=== PATIENT | female | born 1945 | race Caucasian/White ===

== ENCOUNTER 2023-11-14 21:13 | Inpatient (IN) | payer OTHER, SELFPAY ==
[2023-11-14 17:19] VITALS: BMI 22.3
[2023-11-14 17:23] VITALS: BP 128/75
--- NOTE | 2023-11-14 18:02 | ED.GENMED ---
History of Present Illness
General
Chief Complaint: Fall
Source: patient
Exam Limitations: none
Time Seen by Provider: 11/14/23 17:46
Nursing documentation reviewed up to this point in time: agreed with
Travel History
Have you had any contact with someone who has COVID-19?: No
Do you have any symptoms of coronavirus? Fever > 100 degrees, chills, cough, shortness of breath, sore throat, loss of taste or smell, muscle aches, or headache?: No
History of Present Illness
History of Present Illness:
Patient is a 78-year-old female who presents via ambulance.. Patient reports she was walking on the concrete outside and fell hit the left side of her shoulder. She reports it happened so fast she does not believe she hit her head but is not
certain. She complains of left shoulder pain left knee pain. She denies any pain in the hip. She is on blood thinners. denies headache denie
40s neck pain.
Review of Systems
Review of Systems
Allergies reviewed?: Yes
All Other Systems: ROS reviewed and negative except as documented in HPI and ROS
Constitutional: Reports no symptoms; Denies fever
EENT: Reports no symptoms
Respiratory: Reports no symptoms
Cardiac: Reports no symptoms
Musculoskeletal: Reports other (left shoulder left knee pain )
Skin: Reports no symptoms
Neurological: Reports no symptoms
Psychiatric: Reports no symptoms
Phy Exam
General Physical Exam
General Presentation: mild distress
General age: appears stated age
General Skin: warm and dry
General Habitus: elderly
General Mental: alert
General Hydration: appears well hydrated
Cardiovascular Exam
Cardiovascular Exam: regular rate/rhythm, no murmur and normal peripheral pulses
Pulmonary Exam
Pulmonary Exam: lungs clear and no respiratory distress
Neurological Exam
Neurological Exam: alert and oriented x3
Sandra Coma Scale
Eye Opening: Spontaneous
Verbal Response: Oriented
Motor Response: Obeys Commands
GCS Total Score: 15
Musculoskeletal Exam
Musculoskeletal Exam: other (No obvious head injury on exam very cervical thoracic or lumbar tenderness patient tender throughout the left proximal shoulder region, limited range of motion due to pain , lle with strong pulses pain with any ROM to
left knee no deformity )
Skin Exam
Skin Exam: normal color and warm/dry
Psychiatric Exam
Psychiatric Exam: normal mood/affect
Course
Orders/Labs/Results
Orders:
Orders
11/14/23 17:27
CR Knee - Left 4 Or More View* Urgent
Comment:
Reason For Exam: fall, left knee pain
CR Shoulder, Trauma - Left Urgent
Reason For Exam: left shoulder pain after fall.
11/14/23 18:01
CT Head W/o Iv Contrast Urgent
Comment:
Reason For Exam: trauma
Morphine Sulfate 2 mg IV NOW STA
11/14/23 18:09
Complete Blood Count/With Diff Urgent
Comprehensive Metabolic Panel Urgent
11/14/23 18:23
Morphine Sulfate 4 mg IV NOW STA
11/14/23 19:07
Femur, Left 2 View [CR Femur - Left Min 2 Vw] Urgent
Comment:
Reason For Exam: trauma
Hip, Left 2-3 Views [CR Hip - LT w/wo Pel 2-3 Vw*] Urgent
Comment:
Reason For Exam: trauma
Include a pelvis x-ray?: Yes
11/14/23 20:12
Morphine Sulfate 4 mg IV NOW STA
11/14/23 20:26
Knee Immobilizer Left-Treatmen ONCE
Shoulder Immobilizer Left- Tx ONCE
11/14/23 20:41
Admit/Transfer Patient As Directed
Co-Sign Provider:
Level of Care: Inpatient admission
Assign to:: Medical/Surgical
Physician / Group: ramila hubbard
Diagnosis: acute tib plateau fracture
Reason for Hospitalization: acute tib plateau fracture
Expected length of stay greater than two midnights?: Yes
ELOS- Estimated Length of Stay in days: 3
I certify the patient meets the requirements for IP care: Yes
11/14/23 20:43
Code Status As Directed
Resuscitation Status: Full Code
Abnormal Lab Results
11/14/23
18:09
WBC 13.3 H 10^3/uL
(4.8-10.8)
RBC 4.01 L 10^6/uL
(4.20-5.40)
Hct 35.4 L %
(37.0-47.0)
MPV 10.5 H fL
(7.4-10.4)
Abs Immat Gran (auto) 0.1 H 10^3/uL
(0-0.05)
Absolute Neuts (auto) 9.0 H 10^3/uL
(1.4-6.5)
Absolute Monos (auto) 0.8 H 10^3/uL
(0.1-0.6)
Immature Gran % 0.7 H %
(0-0.5)
BUN 18 H mg/dl
(7-17)
Glucose 140 H mg/dl
(70-99)
11/14/23 18:09
11/14/23 18:09
Vital Signs
Initial and Last Documented VS:
Initial Vital Signs
Temp Pulse Resp BP Pulse Ox
97.6 F 71 18 128/75 95
11/14/23 17:23 11/14/23 17:23 11/14/23 17:23 11/14/23 17:23 11/14/23 17:23
Last Documented Vital Signs
Temp Pulse Resp BP Pulse Ox
97.6 F 84 16 133/74 93
11/14/23 17:23 11/14/23 18:12 11/14/23 18:12 11/14/23 21:00 11/14/23 21:15
MDM/Problems Addressed
Differential Diagnosis Includes:
Not limited to shoulder fracture versus contusion versus sprain, knee fracture versus sprain
MDM/Problems Addressed:
78-year-old female was walking outside describes mechanical fall landing on the left side. She complains of left shoulder plain left knee pain. She has an acute fracture of the left proximal humerus with impaction. Patient also has acute fracture
lateral tibial plateau with mild articular surface depression of left knee. Patient has required multiple doses of pain medication here in the ER. She is on blood thinners and denies hitting her head no obvious tender on exam no obvious findings
on CAT scan. I did speak with orthopedics will place in shoulder immobilizer knee immobilizer however patient requiring several doses of narcotic medication does not feel well to go home will require admission and possible SNF placement.
*Radiology
Radiology exam reviewed: radiology read reviewed
*Pulse Oximetry
Patient hypoxic: no
*Critical Care Note
Total Time (30-74mins, 75-104mins- exclusive of procedures): Not Applicable
Patient Management
Discussion with other providers: Foreign Collection Clerk (ortho Dr Alvarez )
ED Attending Note
-
Portions of this chart may have been created with voice recognition software.� Occasional wrong word or��sound alike� substitutions may have occurred due to the inherent limitations of voice recognition software.
Discharge Plan
Departure
Patient Disposition: Admit
Date of Disposition: 11/14/23
Time of Disposition: 20:20
Admit to: Med/Surg
Admit to doctor: hospitalist
Presentation/result/management discussed w/ accepting MD/DO: Hospitalist
Covid-19: Not Applicable
Discharge Problem:
tibial plateau fracture of left knee , acute fracture of proximal humerus
Interventions
Interventions:
*Risk Screen - Suicide Last Done: 11/14/23 20:20
*General Assessment Last Done: 11/14/23 20:21
*Neglect/Abuse Screening Last Done: 11/14/23 20:20
ED- Fall Risk Assessment Last Done: 11/14/23 20:22
*ED COVID-19 Vaccine History Last Done: 11/14/23 20:20
ED-Musculoskeletal Assessment Last Done: 11/14/23 18:06
ED- Neurological Assessment Last Done: 11/14/23 18:06
ED-Skin Assessment Last Done: 11/14/23 18:06
[2023-11-14] MEDS: MORPHINE SULFATE 2 MG IV (18:04)
[2023-11-14 18:12] VITALS: BP 132/70
[2023-11-14 18:27] LABS: % Basophils 0.4 % (0-2); % Eosinophils 0.8 % (0-6); % Immature Granulocytes 0.7 % (0-0.5); % Monocytes 5.7 % (1.7-9.3); % Neutrophils 67.4 % (42.2-75.2); Absolute Basophils 0.1 10^3/uL (0-0.2); Absolute Eosinophils 0.1 10^3/uL (0-0.7); Absolute Immature Granulocytes 0.1 10^3/uL (0-0.05); Absolute Lymphocytes 3.3 10^3/uL (1.2-3.4); Absolute Monocytes 0.8 10^3/uL (0.1-0.6); Hematocrit 35.4 % (37.0-47.0); Mean Corp Hgb Conc. 33.9 g/dL (33.0-37.0); Mean Corpuscular Hgb 29.9 pg (27.0-31.0); Mean Corpuscular Volume 88.3 fL (81.0-99.0); Mean Platelet Volume 10.5 fL (7.4-10.4); Nucleated Red Blood Cells % 0 %; Platelet Count 240 10^3/uL (130-400); Red Blood Cell Count 4.01 10^6/uL (4.20-5.40); Red Cell Dist. Width 12.4 % (11.5-14.5); White Blood Cell Count 13.3 10^3/uL (4.8-10.8)
[2023-11-14] MEDS: MORPHINE SULFATE 4 MG IV ×2 (18:31→20:16)
[2023-11-14 18:41] LABS: ALT (SGPT) 16 U/L (0-35); AST (SGOT) 29 U/L (14-36); Albumin 4.1 g/dl (3.5-5.0); Alkaline Phosphatase 102 U/L (38-126); Blood Urea Nitrogen 18 mg/dl (7-17); Calcium 9.3 mg/dl (8.4-10.2); Carbon Dioxide 29 mmol/L (22-30); Chloride 101 mmol/L (98-107); Glucose 140 mg/dl (70-99); Potassium 3.6 mmol/L (3.5-5.1); Sodium 137 mmol/L (135-145); Total Bilirubin 0.4 mg/dl (0.2-1.3); eGFR > 60.00
[2023-11-14 19:06] VITALS: BP 152/73
[2023-11-14 20:09] VITALS: BP 143/97
--- NOTE | 2023-11-14 20:21 | HPS.HSE ---
Addendum entered and electronically signed by Jace Concepcion DO 11/14/23 22:15:
Patient seen and examined independently. Agree with findings and plan as set forth by TRACY Mooney.
Patient is a 78y F with no significant PMH who presents to ED for evaluation s/p [id number] today. Patient was walking on the sidewalk when she turned her ankle on the edge of the side walk and fell to the L. She landed on her L sided. She
does not recall whether or not she struck her head. She denies any LOC. She denies any prodrome, recent illness, etc. She has no chronic health issues and takes no medications at home.
Ass:
Fall at Home
Left Proximal Humerus Fracture
Left Tibial Plateau Fracture
Leukocytosis - likely stress response
Plan:
Admit for further evaluation and treatment.
Pain control overnight.
Ortho evaluation for recommendations / surgical intervention.
PT /OT evaluations once cleared for activity.
Original Note:
Family Physician
-
Family Physician: Greg Muhammad
Chief Complaint
-
left should and hip pain
History of Present Illness
78-year-old female with no significant PMH presented to us with fall. she was walking on the concrete outside. in between the pavement and grass, there was a gap. her feet caught in it and fell on the left side. she does not remember if she hit the
head. she has significant left arm and knee pain. denied fever, chills, BARBOUR,dizzy or syncopal episode. denied chest pain, sob. denied abdominal pain, n,v, d. denied dysuria or hematuria.
knee x ray with Acute fracture of the lateral tibial plateau with mild articular surface depression
Shoulder X ray with Acute fracture of the left proximal humerus. Transverse fracture plane through the surgical neck with impaction. Nondisplaced oblique fracture through the greater tuberosity. The glenohumeral and acromioclavicular joint
alignments are maintained.
patient requiring multiple morphine in ER. admitting for further management.
Medical History
Past Medical History
Past Medical History: Reports None
Past Surgical History: Reports Other
Additional Past Surgical History:
MOH surgery
Social History
Tobacco: Non-smoker
Alcohol: None
Personal:
Living: With Family
Family History
Family History: Not pertinent
Allergies / Home Medications
Allergies reflects when Allergies were last updated in [facility].
Home Medications with original date entered in [facility]
Allergy/Medication List:
Allergies
Allergy/AdvReac Type Severity Reaction Status Date / Time
No Known Allergies Allergy Unverified 11/14/23 17:23
Home Medications
ascorbic acid (vitamin C) 500 mg tablet (Vitamin C) 500 mg PO DAILY 11/14/23
biotin 10,000 mcg chewable tablet (Hair, Skin and Nails (biotin)) 10,000 mcg PO DAILY 11/14/23
cholecalciferol (vitamin D3) 25 mcg (1,000 unit) tablet (Vitamin D3) 25 mcg PO DAILY 11/14/23
cyanocobalamin (vitamin B-12) 1,000 mcg tablet (Vitamin B-12) 1,000 mcg PO DAILY 11/14/23
magnesium 250 mg tablet 250 mg PO DAILY 11/14/23
multivitamin 1 tab PO DAILY 11/14/23
vitamin A-vitamin C-vit E-min tablet 1 tab PO DAILY 11/14/23
Review of Systems
-
Constitutional: Reports No Symptoms
EENT: Reports No Symptoms
Respiratory: Reports No Symptoms
Cardiac: Reports No Symptoms
Abdomen/GI: Reports No Symptoms
: Reports No Symptoms
Musculoskeletal: Reports Other (left knee and shoulder pain)
Skin: Reports No Symptoms
Neurological: Reports No Symptoms
Endocrine: Reports No Symptoms
Hematologic/Lymphatic: Reports No Symptoms
Psych: Reports No Symptoms
Physical Exam
Vital Signs
Vital Signs
Temp Pulse Resp BP Pulse Ox
97.6 F 84 16 143/97 92
11/14/23 17:23 11/14/23 18:12 11/14/23 18:12 11/14/23 20:09 11/14/23 20:15
Physical Exam
General: Well Developed, Well Nourished and No Apparent Distress
HEENT: NormoCephalic, Moist mucous membranes and Atraumatic
Respiratory: Clear
Cardiac: S1/S2 and Regular Rhythm; No Murmur or Rub
GI: Soft, Non Tender, Non Distended and Normal Bowel Sounds; No Organomegaly
Rectal: Deferred by Provider
Skin: No Rash
Neuro: Nonfocal/grossly intact
Psych: Calm
Laboratory Results
-
11/14/23 18:09
11/14/23 18:09
Laboratory Results
Total Bilirubin 0.4 mg/dl (0.2-1.3) 11/14/23 18:09
AST 29 U/L (14-36) 11/14/23 18:09
ALT 16 U/L (0-35) 11/14/23 18:09
Alkaline Phosphatase 102 U/L (38-126) 11/14/23 18:09
Data Reviewed
-
Diagnostic Radiology: Report Reviewed by me
Lab Data: Labs Reviewed by me
Impression/Plan
-
# Fall with acute fracture of the left proximal humerus with impaction/left tibial plateau fracture
-IV Dilaudid for pain
-Shoulder immobilizer/knee immobilizer
-Dilaudid and oxy prn for pain
-Orthopedics aware
-Knee x-ray with impression of Acute fracture of the lateral tibial plateau with mild articular surface depression.No dislocation. The osseous structures are diffusely demineralized. Small suprapatellar joint effusion. Soft tissue swelling about the
knee.
-Shoulder x-ray with impression of Acute fracture of the left proximal humerus. Transverse fracture plane through the surgical neck with impaction. Nondisplaced oblique fracture through the greater tuberosity. The glenohumeral and acromioclavicular
joint alignments are maintained.
-Head CT pending
-Femur XR pending
-Hip x-ray pending
# Leukocytosis likely stress reaction
-WBC 13.3
-Afebrile
-Continue to monitor
#DVT prophylaxis
-scd
#CODE status
-full code
[2023-11-14 21:00] VITALS: BP 133/74
[2023-11-14 21:13] VITALS: BMI 22.3
[2023-11-14 22:00] VITALS: BP 137/67
[2023-11-14] MEDS: DILAUDID 0.5 MG IV (22:47)
[2023-11-14] MEDS: COLACE 100 MG PO (22:47)
[2023-11-14] MEDS: SENOKOT PO ×2 (22:47→22:50)
[2023-11-15] MEDS: TYLENOL PO ×2 (00:29→05:14)
[2023-11-15] MEDS: DILAUDID 0.5 MG IV ×3 (02:36→08:09)
[2023-11-15] MEDS: COLACE 100 MG PO (08:02)
[2023-11-15] MEDS: TYLENOL 650 MG PO (08:02)
[2023-11-15] MEDS: SENOKOT 17.1999999999999993 MG PO (08:02)
--- NOTE | 2023-11-15 08:43 | W.PN.UPDATE ---
Update Note
Progress Note Update
Patient seen on AM rounds. Full consult note to follow.
Left proximal humerus fracture
--Immobilization with sling.
--NWB to LUE.
--Continue pain control per primary. Ice for pain and edema control. Could also consider topical analgesics.
Left lateral tibial plateau fracture
--Immobilization with knee immobilizer.
--May be 20% weight bearing to LLE for transfers, otherwise NWB to LLE.
Case management consult for discharge planning. Likely will need SNF placement. F/u outpatient in 2 weeks for repeat x-rays for position check.
--- NOTE | 2023-11-15 09:15 | W.PN.HOSP.TC ---
Today's Communication/Plan
-
MRI
DISCHARGE PLANNING
Assessment / Plan
Assessment / Plan
78-year-old female was walking outside on the concrete and had a fall. Her feet was caught on the left side.
CVS: S1-S2 normal
Chest: CTA B/L
Abdomen: Soft, NT / Bowel sounds present
Extremities: Left upper extremity on immobilizer/sling
Left lower extremity on immobilizer
HADOOP DEVELOPER: Slightly drowsy. Conversant
# Fall with acute fracture of the left proximal humerus with impaction and left tibial plateau fracture
Orthopedics evaluated
Left proximal humerus fracture-sling immobilization, nonweightbearing to left upper extremity, pain control, ice for pain
Left lateral tibial plateau fracture-immobilization with knee immobilizer, 20% weightbearing to left lower extremity for transfers, otherwise nonweightbearing to left lower extremity
Orthopedic follow-up in 2 weeks for repeat x-rays and for position check
Slightly drowsy from pain medicines. Discussed that we need to cut back
Ibuprofen as needed added Tylenol [id number]
Lidocaine patch
MRI knee per orthopedics
Decreased Dilaudid. Try to avoid IV medicines as possible
# Leukocytosis likely stress reaction -repeat
# DVT prophylaxis-aspirin 325 mg per discussion with orthopedics
# CODE STATUS-full code
Discussed with at bedside
Case management consulted for discharge planning
Anticipated Discharge: Within 24 hours
Subjective/Interval History
-
Date of Service: November 15, 2023
Objective Data
-
Vital Signs:
Vital Signs
Temp Pulse Resp BP Pulse Ox
98.0 F 84 16 137/67 97
11/15/23 07:00 11/14/23 18:12 11/14/23 18:12 11/14/23 22:00 11/15/23 00:30
--- NOTE | 2023-11-15 10:06 | CM ---
Addendum entered by Asiya Hinojosa RN 11/15/23 11:45:
CM met with patient and in room. Patient lives independently with and is ambulatory with assistive devices. Patient lives in a single story home. Patient does not have a history of VN, SNF or DME. Patient is active with her PCP.
Patient uses [facility] for medication services.
Discussed SNF options. Patient is agreeable to [facility] first choice and [facility] second choice. CM sent preliminary referrals via [facility]. CM awaiting PT recommendations.
PLAN: SNF
Original Note:
CM attempted to meet with patient and . Patient leaving room for test. CM will return to discuss discharge planning.
--- NOTE | 2023-11-15 10:07 | CON.ORTHO ---
Consultation
-
Date/Time Consultation Requested: 11/14/2023; time unknown
Date/Time Consultation Performed: 11/15/2023; 0745
Requesting Provider: unknown
Performing Provider: Sol Peoples PA-C for Dr. Huong Alvarez
Reason for Consultation: Left proximal humerus fracture / Left tibial plateau fracture
Consultation - Orthopedics
History
Ms. Crouch is a 78 year old female with no significant PMH seen today for her left shoulder and knee. She reports she was on a walk yesterday when her foot got caught in the space between the sidewalk and the grass, causing her to fall. She
experienced immediate onset of pain in her shoulder and knee. Se was unable to get up off the ground. She presented to ED via EMS where x-rays revealed a proximal humerus fracture and lateral tibial plateau fracture. She is resting comfortably in
bed this morning. She does endorse pain with any palpation or movement of either joint. She denies any history of fractures or orthopedic surgeries. She lives at home with her . She ambulates without assistance at baseline, and reports she is
quite active and walks for exercise.
Allergies / Home Medications
Allergy/AdvReac Type Severity Reaction Status Date / Time
No Known Allergies Allergy Unverified 11/14/23 17:23
Medication Instructions Recorded
ascorbic acid (vitamin C) 500 mg 500 mg PO DAILY 11/14/23
tablet (Vitamin C)
biotin 10,000 mcg chewable tablet 10,000 mcg PO DAILY 11/14/23
(Hair, Skin and Nails (biotin))
cholecalciferol (vitamin D3) 25 25 mcg PO DAILY 11/14/23
mcg (1,000 unit) tablet (Vitamin
D3)
cyanocobalamin (vitamin B-12) 1,000 mcg PO DAILY 11/14/23
1,000 mcg tablet (Vitamin B-12)
magnesium 250 mg tablet 250 mg PO DAILY 11/14/23
multivitamin 1 tab PO DAILY 11/14/23
vitamin A-vitamin C-vit E-min 1 tab PO DAILY 11/14/23
tablet
Vital Signs / Lab Results
Temp Pulse Resp BP Pulse Ox
98.0 F 84 16 137/67 97
11/15/23 07:00 11/14/23 18:12 11/14/23 18:12 11/14/23 22:00 11/15/23 00:30
11/14/23 18:09
XR Left Knee 11/14/23 FINDINGS/IMPRESSION:
Acute fracture of the lateral tibial plateau with mild articular surface depression.
No dislocation. The osseous structures are diffusely demineralized. Small suprapatellar joint effusion. Soft tissue swelling about the knee.
XR Left Shoulder 11/14/23 FINDINGS/IMPRESSION:
Acute fracture of the left proximal humerus. Transverse fracture plane through the surgical neck with impaction. Nondisplaced oblique fracture through the greater tuberosity. The glenohumeral and acromioclavicular joint alignments are maintained.
Physical Exam:
General: pleasant female in NAD, AAOx3
Head: atraumatic, normocephalic
Eyes:sclera anicteric
Ears: normal hearing
Heart: no edema
Lungs: no audible wheezing
Left shoulder: Effusion about the left shoulder. Generalized tenderness to palpation about the left shoulder. ROM deferred secondary to known fracture. Full ROM of wrist and hand. Neurovascularly intact distally.
Left knee: Effusion about the left knee. No erythema or ecchymosis. Tender to palpation along the lateral joint line and lateral femoral condyle. ROM deferred secondary to known fracture. Calf soft and nontender. Patient able to wiggle toes. Plantar
and dorsiflex ankle. NVID.
Assessment / Plan
Left proximal humerus fracture
--Unfortunately, Eugenia sustained a proximal humerus fracture in her fall. Thankfully, this is in appropriate alignment to continue with non-operative management. She should remain immobilized in her sling at all times other than bathing.
Non-weight bearing to LUE.
--Continue current pain management regimen. Ice for edema and pain control. Could add topical analgesics for additional pain control.
Left lateral tibial plateau fracture
--Eugenia also sustained a lateral tibial plateau fracture in her fall. This also is in appropriate alignment to proceed with non-operative management.
--Would like to obtain an MRI of her left knee to further evaluate her fracture and assess for soft tissue injury.
--Knee immobilizer at all times. She may be 20% weight bearing for transfers, otherwise NWB to LLE.
--Recommend ASA 325 mg daily for DVT ppx given limited mobility over the coming weeks.
Case management consult for discharge planning. Orthopedics will continue to follow peripherally for MRi results if able to be done during admission. We will otherwise see her outpatient in 2 weeks for repeat x-rays for position check.
[2023-11-15] MEDS: LIDOCAINE 4% PATCH 1 PATCH TOPICAL (10:10)
[2023-11-15] MEDS: MIRALAX 17 GRAMS PO (10:10)
[2023-11-15 11:31] LABS: Vitamin B12 870 pg/ml (239-931)
[2023-11-15] MEDS: DILAUDID 0.25 MG IV ×3 (11:31→20:02)
[2023-11-15] MEDS: ASPIRIN 325 MG PO (11:31)
[2023-11-15 12:12] LABS: Vitamin D, 25-OH*** 37.1 ng/mL (30-80)
[2023-11-15] MEDS: TYLENOL 1000 MG PO ×2 (13:40→22:05)
[2023-11-15 13:54] LABS: Hematocrit 32.4 % (37.0-47.0); Hemoglobin 11.1 g/dL (12.0-16.0); Mean Corp Hgb Conc. 34.3 g/dL (33.0-37.0); Mean Corpuscular Volume 87.6 fL (81.0-99.0); Red Cell Dist. Width 12.8 % (11.5-14.5); White Blood Cell Count 11.9 10^3/uL (4.8-10.8)
[2023-11-15 14:27] LABS: Mean Platelet Volume 10.2 fL (7.4-10.4); Platelet Count 175 10^3/uL (130-400)
--- NOTE | 2023-11-15 15:57 | W.PN.UPDATE ---
Update Note
Progress Note Update
Patient was seen And evaluated. I spoke with via cell phone during the evaluation as well. Patient had fallen on her left side injuring her left shoulder and knee after falling while exercise walking when she tripped in a crack in the
walkway. We were consulted by the hospitalist service for orthopedic evaluation and treatment.
She was seen by Dr. Genao 1 year ago in January 2023 for left knee pain of which he suspected arthritis and possibly a meniscal tear. An MRI was ordered but she never had this done. She never followed up with Dr. Genao
Physical exam: Left shoulder: No angular deformities. Mild ecchymosis. No soft tissue tenting. Neurovascularly intact. Complete range of motion wrist, thumb and fingers.
Left knee: Tenderness to palpation about the tibial plateau. No angular deformities. Mild effusion. Mild ecchymosis when compared to the opposite side. Patient is able to actively dorsiflex her ankle against resistance.lower extremity
compartments are supple. Neurovascularly intact.
X-rays of the left shoulder AP internal/external rotation and Y views show a comminuted proximal humerus fracture with Impaction. There does not appear to be extension into the joint. No dislocation.
X-rays and MRI of the left knee shows a comminuted anterior lateral tibial plateau fracture with an area of joint line depression of 5.7 mm. There is an oblique tear of posterior horn and body of medial meniscus and moderate DJD particularly of the
medial compartment.
Impression:comminuted left proximal humerus fracture impacted, left lateral tibial plateau comminuted intra-articular fracture with joint line depression
Plan: Nonoperative and operative approaches of these fractures were discussed. 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 Therefore she
is to wear her shoulder immobilizer day and night remove this for showering purposes only for 4 weeks. No weightbearing on the left Upper extremity. Her left lateral tibial plateau fracture joint line depression of 5.7 mm meets criteria for
conservative treatment as well especially with pre-existing arthritis in the joint. These types of fractures can have upwards of 10 mm of joint line depression with similar results with nonoperative and operative approaches In this age group. She
is to wear her knee immobilizer day and night remove this for showering purposes only. She may apply 20% weightbearing for transfers only from bed to chair and bed to wheelchair. I will see her in the office in 2 weeks for x-rays to check
alignment of both fractures and clinical exam. She will have her knee immobilizer on day and night for 4 weeks total and then just during the day for an additional 2 weeks.
We discussed that if she fails conservative approaches for healing of both of these fractures these would require reverse total shoulder arthroplasty and/or total joint replacement surgery. All questions were answered. Patient is awaiting
disposition.
[2023-11-15 16:35] VITALS: BMI 22.8
[2023-11-15 16:36] VITALS: BP 164/84
[2023-11-15] MEDS: COLACE PO ×2 (20:02→20:09)
[2023-11-15] MEDS: SENOKOT PO (20:09)
[2023-11-15 23:16] VITALS: BP 142/71
[2023-11-16] MEDS: DILAUDID 0.25 MG IV ×3 (00:13→09:33)
[2023-11-16] MEDS: TYLENOL 1000 MG PO ×3 (05:07→21:42)
[2023-11-16 07:00] VITALS: BP 140/77
[2023-11-16] MEDS: ASPIRIN 325 MG PO (09:25)
[2023-11-16] MEDS: LIDOCAINE 4% PATCH 1 PATCH TOPICAL (09:25)
[2023-11-16] MEDS: MIRALAX 17 GRAMS PO (09:28)
[2023-11-16] MEDS: COLACE 100 MG PO (09:28)
[2023-11-16] MEDS: SENOKOT PO ×2 (09:29→21:02)
[2023-11-16 12:35] VITALS: BP 144/78; PULSE 87
[2023-11-16 13:17] VITALS: BP 144/78; PULSE 87
[2023-11-16 15:00] VITALS: BP 131/72
--- NOTE | 2023-11-16 15:38 | W.PN.HOSP.TC ---
Addendum entered and electronically signed by Will Melgoza MD 11/16/23 16:20:
Decreased urine output-add IV fluids
Original Note:
Today's Communication/Plan
-
Medically stable for discharge-made case management aware
If patient refuses bowel regimen-we need to hold narcotics.
Assessment / Plan
Assessment / Plan
78-year-old female was walking outside on the concrete and had a fall. Her feet was caught on the left side.
CVS: S1-S2 normal
Chest: CTA B/L
Abdomen: Soft, NT / Bowel sounds present
Extremities: Left upper extremity on immobilizer/sling
Left lower extremity on immobilizer
STUNNER ANIMAL: Slightly drowsy. Conversant
# Fall with acute fracture of the left proximal humerus with impaction and left tibial plateau fracture
Orthopedics evaluated
Left proximal humerus fracture-sling immobilization, nonweightbearing to left upper extremity, pain control, ice for pain
Left lateral tibial plateau fracture-immobilization with knee immobilizer, 20% weightbearing to left lower extremity for transfers, otherwise nonweightbearing to left lower extremity
Knee immobilizer during the day and night time, remove for shower.
Orthopedic follow-up in 2 weeks for repeat x-rays and for position check
Slightly drowsy from pain medicines. Discussed that we need to cut back, Stop IV Dilaudid.
Oxycodone 5 mg for moderate pain and 10 mg for severe pain
Ibuprofen as needed added Tylenol [id number]
Lidocaine patch
MRI knee per orthopedics noted- Non surgical management.
Decreased Dilaudid. Try to avoid IV medicines as possible
# Leukocytosis likely stress reaction -repeat better
# DVT prophylaxis-aspirin 325 mg per discussion with orthopedics
# CODE STATUS-full code
D/W RN
D/W Case management
Anticipated Discharge: Within 24 hours
Subjective/Interval History
-
Date of Service: November 16, 2023
Objective Data
-
Vital Signs:
Vital Signs
Temp Pulse Resp BP Pulse Ox
97.9 F 68 18 140/77 96
11/16/23 07:00 11/16/23 07:00 11/16/23 07:00 11/16/23 07:00 11/16/23 09:10
I&O
11/15/23 11/16/23 11/17/23
06:59 06:59 06:59
Output Total 680 / 680
Balance -680 / -680
[2023-11-16] MEDS: SENOKOT 17.1999999999999993 MG PO (15:56)
[2023-11-16] MEDS: NSS 500 IV (16:50)
[2023-11-16 17:07] LABS: Blood Urea Nitrogen 18 mg/dl (7-17); Calcium 8.9 mg/dl (8.4-10.2); Carbon Dioxide 28 mmol/L (22-30); Chloride 100 mmol/L (98-107); Estimated Creatinine Clearance 47 ml/min; Glucose 108 mg/dl (70-99); Potassium 3.9 mmol/L (3.5-5.1); Sodium 135 mmol/L (135-145); eGFR > 60.00
--- NOTE | 2023-11-16 17:12 | CM ---
CM following re: d/c planning
Chart reviewed
Pt is medically stable for d/c to SNF pending insurance auth
Pt will be discharged to [facility] once auth obtained
CM initiated auth via phone and will fax clinicals to ; pending reference # [id number]
CM will continue to remain available to the patient and assist with d/c to [facility] once auth obtained
PLAN; d/c to [facility] pending [employer] auth.
Report: [phone]
[2023-11-16] MEDS: NSS 1000 IV (18:47)
[2023-11-16] MEDS: ROXICODONE 10 MG PO (19:37)
[2023-11-16] MEDS: CELEBREX 100 MG PO (19:37)
[2023-11-16] MEDS: COLACE PO (21:02)
[2023-11-16 23:36] VITALS: BP 133/77
[2023-11-17] MEDS: TYLENOL 1000 MG PO ×2 (05:42→14:09)
[2023-11-17] MEDS: ROXICODONE 10 MG PO ×2 (05:43→17:28)
[2023-11-17 07:30] VITALS: BP 134/71
[2023-11-17] MEDS: MIRALAX 17 GRAMS PO (08:38)
[2023-11-17] MEDS: LIDOCAINE 4% PATCH 1 PATCH TOPICAL (08:38)
[2023-11-17] MEDS: ASPIRIN 325 MG PO (08:40)
[2023-11-17] MEDS: SENOKOT 17.1999999999999993 MG PO (08:40)
[2023-11-17] MEDS: COLACE 100 MG PO (08:40)
[2023-11-17] MEDS: CELEBREX 100 MG PO (08:40)
[2023-11-17] MEDS: FLOMAX 0.400000000000000022 MG PO (08:41)
[2023-11-17 10:45] VITALS: BP 168/78
[2023-11-17 10:51] VITALS: BP 178/74
[2023-11-17 12:00] VITALS: BP 133/64
[2023-11-17] MEDS: ROXICODONE 5 MG PO (12:10)
--- NOTE | 2023-11-17 13:07 | CM ---
CM following re: d/c planning
Chart reviewed
Pt is medically stable for d/c
Pt will be transferred to [facility]; insurance auth obtained
[facility] & inhouse transport forms completed and placed on patient chart
Awaiting confirmed time
No additional d/c need noted
PLAN; d/c to [facility]
Report: [phone]

Auth details provided by Abhinav Bobby [phone]
Pt approved for 13 days Skilled level II
SOC 11/16 through 11/28 with [facility] 11/29
Auth.# [id number]
Concurrent review scheduling coordinatorRADU Perkins [phone]
Fax:
--- NOTE | 2023-11-17 14:53 | W.PN.HOSP.TC ---
Today's Communication/Plan
-
Discharge to rehab
Assessment / Plan
Assessment / Plan
78-year-old female was walking outside on the concrete and had a fall. Her feet was caught on the left side.
CVS: S1-S2 normal
Chest: CTA B/L
Abdomen: Soft, NT / Bowel sounds present
Extremities: Left upper extremity on immobilizer/sling
Left lower extremity on immobilizer, able to move toes
STORE LEADER: AAO3
# Fall with acute fracture of the left proximal humerus with impaction and left tibial plateau fracture
Orthopedics evaluated
Left proximal humerus fracture-sling immobilization, nonweightbearing to left upper extremity, pain control, ice for pain
Left lateral tibial plateau fracture-immobilization with knee immobilizer, 20% weightbearing to left lower extremity for transfers, otherwise nonweightbearing to left lower extremity
Knee immobilizer during the day and night time, remove for shower.
Orthopedic follow-up in 2 weeks for repeat x-rays and for position check
Oxycodone 5 mg for moderate pain and 10 mg for severe pain
Ibuprofen as needed added Tylenol [id number]
Lidocaine patch
MRI knee per orthopedics noted- Non surgical management.
Awake alert and oriented since Dilaudid stopped.
# Leukocytosis likely stress reaction -repeat better
# DVT prophylaxis-aspirin 325 mg per discussion with orthopedics
# CODE STATUS-full code
D/W RN
D/W Case management
D/W at bed side
Anticipated Discharge: Today
Subjective/Interval History
-
Date of Service: November 17, 2023
Objective Data
-
Vital Signs:
Vital Signs
Temp Pulse Resp BP Pulse Ox
97.8 F 86 18 133/64 97
11/17/23 12:00 11/17/23 12:00 11/17/23 12:00 11/17/23 12:00 11/17/23 12:00
I&O
11/16/23 11/17/23 11/18/23
06:59 06:59 06:59
Intake Total 1210 / 1210
Output Total 680 / 680 1300 / 1300
Balance -680 / -680 - / -
--- NOTE | 2023-11-17 14:58 | W.DS.TRANS ---
Addendum entered and electronically signed by Will Melgoza MD 11/17/23 18:16:
Dictation- [id number]
Original Note:
DC Summary - [employer]
-
Discharge Instructions:
Discharge Diagnosis/Procedures Traumatic fracture of the left proximal humerus
and left tibial plateau
Diet As tolerated
Activity Other activity
Additional Activity Left proximal humerus fracture-sling
immobilization, nonweightbearing to left upper
extremity, pain control, ice for pain
Left lateral tibial plateau fracture-
immobilization with knee immobilizer, 20%
weightbearing to left lower extremity for
transfers, otherwise nonweightbearing to left
lower extremity
Knee immobilizer during the day and night time,
remove for shower.
Driving Restrictions No driving
Other Services PT,OT
Instructions:
Stand-Alone Forms:
Changes to Home Medications: Yes
Discharge Medications:
DC Medications w/original date entered in [employer]
acetaminophen 500 mg tablet (Tylenol Extra Strength) 1,000 mg PO Q8H Pain #0 tabs 11/17/23
ascorbic acid (vitamin C) 500 mg tablet (Vitamin C) 500 mg PO DAILY Supplement #0 tabs 11/17/23
aspirin 325 mg tablet 325 mg PO DAILY Blood clot prevention/tx #0 tabs 11/17/23
cholecalciferol (vitamin D3) 25 mcg (1,000 unit) tablet (Vitamin D3) 25 mcg PO DAILY Supplement #0 tabs 11/17/23
cyanocobalamin (vitamin B-12) 1,000 mcg tablet (Vitamin B-12) 1,000 mcg PO DAILY Supplement #0 tabs 11/17/23
docusate sodium 100 mg capsule 100 mg PO BID Constipation #0 caps 11/17/23
lidocaine 4 % topical patch 1 patch topical DAILY humerus #0 ea 11/17/23
magnesium 250 mg tablet 250 mg PO DAILY Supplement #0 tabs 11/17/23
multivitamin 1 tab PO DAILY Supplement #0 tabs 11/17/23
oxycodone 10 mg tablet 10 mg PO Q4HPRN PRN severe pain #12 tabs 11/17/23
oxycodone 5 mg tablet 5 mg PO Q4HPRN PRN mild pain #0 tabs 11/17/23
polyethylene glycol 3350 17 gram oral powder packet (HealthyLax) 17 g PO DAILY Constipation #0 ea 11/17/23
sennosides 8.6 mg tablet (Senna Laxative) 17.2 mg PO BID Constipation #0 tabs 11/17/23
vitamin A-vitamin C-vit E-min tablet 1 tab PO DAILY Supplement #0 tabs 11/17/23
Home Medication Changes
new
aspirin 325 mg tablet 325 mg PO DAILY Blood clot prevention/tx #0 tabs 11/17/23
oxycodone 10 mg tablet 10 mg PO Q4HPRN PRN severe pain #12 tabs 11/17/23
oxycodone 5 mg tablet 5 mg PO Q4HPRN PRN mild pain #0 tabs 11/17/23
polyethylene glycol 3350 17 gram oral powder packet (HealthyLax) 17 g PO DAILY Constipation #0 ea 11/17/23
sennosides 8.6 mg tablet (Senna Laxative) 17.2 mg PO BID Constipation #0 tabs 11/17/23
docusate sodium 100 mg capsule 100 mg PO BID Constipation #0 caps 11/17/23
lidocaine 4 % topical patch 1 patch topical DAILY humerus #0 ea 11/17/23
Pending Results: No
[2023-11-17 15:13] VITALS: BP 150/83
== END 2023-11-17 19:13 | DRG 563 ==
LOC: 4 EAST ACU 21:13
PROVIDERS: Nurse Practitioner; ADMITTING PHYSICIAN Hospitalist; ATTENDING PHYSICIAN Hospitalist; CONSULT PHYSICIAN Orthopaedic Surgery; EMERGENCY PHYSICIAN Emergency Medicine; FAMILY PHYSICIAN Family Medicine
DX: S82.125A Nondisplaced fracture of lateral condyle of left tibia, initial encounter for closed fracture (principal); S42.255A Nondisplaced fracture of greater tuberosity of left humerus, initial encounter for closed fracture
CPT/HCPCS: 70450; 73030; 73502; 73552; 73564; 73721; 80048; 80053; 82306; 82607; 85025; 85027; 96374; 96376; 97163; 97167; 97530; 97535; 99285

== ENCOUNTER → 2023-11-21 11:48 | Outpatient (REF) | payer OTHER, SELFPAY ==
[2023-11-21 12:15] LABS: % Basophils 0.3 % (0-2); % Eosinophils 0.8 % (0-6); % Immature Granulocytes 0.3 % (0-0.5); % Lymphocytes 10.4 % (20.5-51.1); % Monocytes 7.5 % (1.7-9.3); % Neutrophils 80.7 % (42.2-75.2); Absolute Eosinophils 0.1 10^3/uL (0-0.7); Absolute Lymphocytes 1.1 10^3/uL (1.2-3.4); Absolute Monocytes 0.8 10^3/uL (0.1-0.6); Absolute Neutrophils 8.9 10^3/uL (1.4-6.5); Hematocrit 33.7 % (37.0-47.0); Hemoglobin 10.7 g/dL (12.0-16.0); Mean Corp Hgb Conc. 31.8 g/dL (33.0-37.0); Mean Corpuscular Hgb 29.4 pg (27.0-31.0); Mean Corpuscular Volume 92.6 fL (81.0-99.0); Mean Platelet Volume 10.6 fL (7.4-10.4); Nucleated Red Blood Cells % 0 %; Platelet Count 250 10^3/uL (130-400); Red Blood Cell Count 3.64 10^6/uL (4.20-5.40); Red Cell Dist. Width 13.2 % (11.5-14.5)
[2023-11-21 12:23] LABS: Blood Urea Nitrogen 27 mg/dl (7-17); Calcium 8.7 mg/dl (8.4-10.2); Carbon Dioxide 26 mmol/L (22-30); Chloride 103 mmol/L (98-107); Glucose 92 mg/dl (70-99); Potassium 4.5 mmol/L (3.5-5.1); Sodium 135 mmol/L (135-145); eGFR > 60.00
== END ==
LOC: OLABP 11:48
PROVIDERS: ATTENDING PHYSICIAN Family Medicine
DX: M79.605 Pain in left leg (principal); M25.512 Pain in left shoulder; R26.2 Difficulty in walking, not elsewhere classified; S82.141A Displaced bicondylar fracture of right tibia, initial encounter for closed fracture
CPT/HCPCS: 36415; 80048; 85025

== ENCOUNTER → 2023-12-05 09:13 | Outpatient (REF) | payer OTHER, SELFPAY ==
[2023-12-05 09:37] LABS: % Basophils 0.5 % (0-2); % Eosinophils 1.9 % (0-6); % Immature Granulocytes 0.4 % (0-0.5); % Monocytes 6.8 % (1.7-9.3); % Neutrophils 66.4 % (42.2-75.2); Absolute Basophils 0.1 10^3/uL (0-0.2); Absolute Eosinophils 0.2 10^3/uL (0-0.7); Absolute Lymphocytes 2.2 10^3/uL (1.2-3.4); Absolute Monocytes 0.6 10^3/uL (0.1-0.6); Absolute Neutrophils 6.1 10^3/uL (1.4-6.5); Hematocrit 30.9 % (37.0-47.0); Hemoglobin 10.4 g/dL (12.0-16.0); Mean Corp Hgb Conc. 33.7 g/dL (33.0-37.0); Mean Corpuscular Hgb 30.3 pg (27.0-31.0); Mean Corpuscular Volume 90.1 fL (81.0-99.0); Mean Platelet Volume 10.1 fL (7.4-10.4); Nucleated Red Blood Cells % 0 %; Platelet Count 285 10^3/uL (130-400); Red Blood Cell Count 3.43 10^6/uL (4.20-5.40); Red Cell Dist. Width 13.8 % (11.5-14.5); White Blood Cell Count 9.2 10^3/uL (4.8-10.8)
[2023-12-05 18:13] LABS: Blood Urea Nitrogen 21 mg/dl (7-17); Calcium 9.6 mg/dl (8.4-10.2); Carbon Dioxide 22 mmol/L (22-30); Chloride 103 mmol/L (98-107); Glucose 85 mg/dl (70-99); Potassium 4.4 mmol/L (3.5-5.1); Sodium 137 mmol/L (135-145); eGFR > 60.00
== END ==
LOC: OLABP 09:13
PROVIDERS: ATTENDING PHYSICIAN Family Medicine
DX: E11.9 Type 2 diabetes mellitus without complications (principal); I50.9 Heart failure, unspecified; I11.0 Hypertensive heart disease with heart failure; M62.81 Muscle weakness (generalized)
CPT/HCPCS: 36415; 80048; 85025

== ENCOUNTER → 2024-06-24 09:50 | Outpatient (REF) | payer OTHER, SELFPAY ==
[2024-06-24 11:19] LABS: % Basophils 0.5 % (0-2); % Eosinophils 2.2 % (0-6); % Immature Granulocytes 0.4 % (0-0.5); % Lymphocytes 20.2 % (20.5-51.1); % Monocytes 6.1 % (1.7-9.3); % Neutrophils 70.6 % (42.2-75.2); Absolute Eosinophils 0.2 10^3/uL (0-0.7); Absolute Lymphocytes 1.7 10^3/uL (1.2-3.4); Absolute Monocytes 0.5 10^3/uL (0.1-0.6); Absolute Neutrophils 5.8 10^3/uL (1.4-6.5); Hematocrit 40.6 % (37.0-47.0); Hemoglobin 13.2 g/dL (12.0-16.0); Mean Corp Hgb Conc. 32.5 g/dL (33.0-37.0); Mean Corpuscular Hgb 28.4 pg (27.0-31.0); Mean Corpuscular Volume 87.5 fL (81.0-99.0); Mean Platelet Volume 10.8 fL (7.4-10.4); Nucleated Red Blood Cells % 0 %; Platelet Count 230 10^3/uL (130-400); Red Blood Cell Count 4.64 10^6/uL (4.20-5.40); Red Cell Dist. Width 12.3 % (11.5-14.5); White Blood Cell Count 8.2 10^3/uL (4.8-10.8)
[2024-06-24 11:31] LABS: ALT (SGPT) 16 U/L (0-35); AST (SGOT) 34 U/L (14-36); Albumin 4.7 g/dl (3.5-5.0); Alkaline Phosphatase 102 U/L (38-126); Blood Urea Nitrogen 19 mg/dl (7-17); Calcium 9.7 mg/dl (8.4-10.2); Carbon Dioxide 26 mmol/L (22-30); Chloride 102 mmol/L (98-107); Glucose 93 mg/dl (70-99); HDL Cholesterol 82 mg/dl; LDL Cholesterol, Calculated 156 mg/dl; Potassium 4.4 mmol/L (3.5-5.1); Sodium 142 mmol/L (135-145); Total Bilirubin 0.6 mg/dl (0.2-1.3); Total Cholesterol 264 mg/dl (50-199); Triglyceride 132 mg/dl (10-149); Very Low Density Lipoprotein 26 mg/dl (0-30); eGFR > 60.00
[2024-06-24 11:35] LABS: Glycohemoglobin (HgbA1c) 5.2 % (4.0-5.6)
[2024-06-24 14:18] LABS: TSH Reflex To Free T4 2.45 uIU/ml (0.47-4.68)
[2024-06-24 14:50] LABS: Vitamin B12 928 pg/ml (239-931)
== END ==
LOC: HWRAD 09:50
PROVIDERS: ATTENDING PHYSICIAN Family Medicine
DX: G89.29 Other chronic pain (principal); R53.82 Chronic fatigue, unspecified; Z00.00 Encounter for general adult medical examination without abnormal findings; E78.2 Mixed hyperlipidemia; Z79.899 Other long term (current) drug therapy; M81.0 Age-related osteoporosis without current pathological fracture
CPT/HCPCS: 36415; 77080; 80053; 80061; 82306; 82607; 83036; 84443; 85025

== ENCOUNTER 2024-07-28 19:35 | Emergency (ER) | payer OTHER, SELFPAY ==
[2024-07-28 19:37] VITALS: BP 170/106
[2024-07-28 19:59] LABS: % Basophils 0.4 % (0-2); % Eosinophils 1.7 % (0-6); % Immature Granulocytes 0.2 % (0-0.5); % Lymphocytes 26.4 % (20.5-51.1); % Neutrophils 65.3 % (42.2-75.2); Absolute Eosinophils 0.2 10^3/uL (0-0.7); Absolute Lymphocytes 2.7 10^3/uL (1.2-3.4); Absolute Monocytes 0.6 10^3/uL (0.1-0.6); Absolute Neutrophils 6.7 10^3/uL (1.4-6.5); Hematocrit 39.2 % (37.0-47.0); Hemoglobin 12.4 g/dL (12.0-16.0); Mean Corp Hgb Conc. 31.6 g/dL (33.0-37.0); Mean Corpuscular Volume 91.6 fL (81.0-99.0); Mean Platelet Volume 10.1 fL (7.4-10.4); Nucleated Red Blood Cells % 0 %; Platelet Count 245 10^3/uL (130-400); Red Blood Cell Count 4.28 10^6/uL (4.20-5.40); Red Cell Dist. Width 12.4 % (11.5-14.5); White Blood Cell Count 10.3 10^3/uL (4.8-10.8)
[2024-07-28 20:19] LABS: ALT (SGPT) 18 U/L (0-35); AST (SGOT) 30 U/L (14-36); Albumin 4.5 g/dl (3.5-5.0); Alkaline Phosphatase 113 U/L (38-126); Blood Urea Nitrogen 21 mg/dl (7-17); Calcium 9.5 mg/dl (8.4-10.2); Carbon Dioxide 28 mmol/L (22-30); Chloride 103 mmol/L (98-107); Glucose 96 mg/dl (70-99); Lipase 341 U/L (23-300); Potassium 4.7 mmol/L (3.5-5.1); Sodium 142 mmol/L (135-145); Total Bilirubin 0.3 mg/dl (0.2-1.3); Total Protein 7.7 g/dl (6.3-8.2); eGFR 46.62
[2024-07-28 20:28] LABS: Troponin I < 0.012 ng/ml
[2024-07-28 20:32] VITALS: BP 152/72
--- NOTE | 2024-07-28 20:54 | ED.GENMED ---
History of Present Illness
General
Chief Complaint: Musculo-Skeletal Complaint
Source: patient and spouse
Exam Limitations: none
Time Seen by Provider: 07/28/24 20:30
Nursing documentation reviewed up to this point in time: agreed with
History of Present Illness
History of Present Illness:
78-year-old female presents emergency room complaining of chest pain, upper back pain and upper abdominal pain for the past 3 weeks. She saw her primary care last week and was given Celebrex. Gave her no relief.
Past History
Past History
ED Past Medical History: None
ED Past Surgical History: Other (MOHS surgery)
Social History
Tobacco: Non-smoker
Alcohol: None
Drug: None
Personal:
Living: with family
Employment: Retired
Review of Systems
Review of Systems
Allergies reviewed?: Yes
All Other Systems: Not applicable
Constitutional: Reports no symptoms
EENT: Reports no symptoms
Respiratory: Reports trouble breathing
Cardiac: Reports chest pain
ABD/GI: Reports abdominal pain
: Reports no symptoms
Musculoskeletal: Reports no symptoms
Skin: Reports no symptoms
Neurological: Reports no symptoms
Endocrine: Reports no symptoms
Hematologic/Lymphatic: Reports no symptoms
Psychiatric: Reports no symptoms
Phy Exam
Physical Exam
Physical Exam:
Physical Exam
General: no apparent distress, not acutely ill
Neck: supple. no meningeal signs. normal posterior pharynx
Heart: s1/s2 regular rate and rhythm, no murmur. equal radial
pulses.
HEENT: Pupils equal round reactive to light, EOMI
Lungs: no acute respiratory distress. clear bilaterally, chest wall tender to palpation
Abdomen: normal bowel sounds. Mild upper abdominal tenderness to palpation, no rebound or guarding. No CVAT
Neuro: alert and oriented. no focal neurological deficits cranial nerves II through XII intact
Skin: no rash
Psychiatric: well kept. interactive and cooperative
Extremities: no edema. no calf tenderness. negative homans. good distal pulses
Course
Orders/Labs/Results
Orders:
Orders
07/28/24 19:40
Electrocardiogram (*1) Urgent
Reason for Study: Chest Pain
07/28/24 19:41
EKG- Treatment ONCE
07/28/24 19:51
Complete Blood Count/With Diff Urgent
Comprehensive Metabolic Panel Urgent
Lipase Urgent
Comment: ADD ON
Troponin I Urgent
07/28/24 19:54
Add On- LAB Urgent
Tests Added?: lipase
07/28/24 20:53
CT Pe/abd/pel W Urgent
Reason For Exam: chest pain, short of breath
07/28/24 20:56
Morphine Sulfate 4 mg IV NOW STA
Ondansetron Injectable [Zofran] 4 mg IV NOW STA
07/28/24 22:50
Gabapentin [Neurontin] 100 mg PO NOW STA
Lidocaine [Lidocaine 4% Patch] 1 patch TOPICAL STAT STA
Apply Lidocaine patch(s) to:: upper back
Abnormal Lab Results
07/28/24
19:51
MCHC 31.6 L g/dL
(33.0-37.0)
Absolute Neuts (auto) 6.7 H 10^3/uL
(1.4-6.5)
BUN 21 H mg/dl
(7-17)
Creatinine 1.2 H mg/dL
(0.6-1.0)
Lipase 341 H U/L
(23-300)
07/28/24 19:51
07/28/24 19:51
Vital Signs
Initial and Last Documented VS:
Initial Vital Signs
Temp Pulse Resp BP Pulse Ox
98.3 F 83 18 170/106 97
07/28/24 19:37 07/28/24 19:37 07/28/24 19:37 07/28/24 19:37 07/28/24 19:37
Last Documented Vital Signs
Temp Pulse Resp BP Pulse Ox
98.3 F 73 15 132/82 97
07/28/24 19:37 07/28/24 21:12 07/28/24 21:12 07/28/24 22:00 07/28/24 22:00
MDM/Problems Addressed
Differential Diagnosis Includes:
Pulmonary embolism, pancreatitis
MDM/Problems Addressed:
78-year-old female with chronic back pain, likely from compression fractures. No neurologic deficits. No indication for admission. Patient referred to pain management.
*Radiology
Radiology exam reviewed: radiology read reviewed (CT chest abdomen pelvis shows no PE, multiple compression fractures.)
*Pulse Oximetry
Patient hypoxic: no
*EKG
Interpreted by ED Provider?: Yes
EKG Intrepretation Date: 07/28/24
EKG Intrepretation Time: 19:40
Interpretation: abnormal
Comparison EKG: no comparison EKG present
Heart Rate: 88
Rate: normal
Rhythm: sinus and PAC's
[place]: normal axis
Interval: normal interval
QRS Pattern: normal QRS
Ischemia: no ischemia
*Truck Switcher Interpretation
Rate: normal
Interpretation: normal
Heart Rate: 85
Rhythm: sinus
*Critical Care Note
Total Time (30-74mins, 75-104mins- exclusive of procedures): Not Applicable
Patient Management
Social determinants of health affecting care: Living situation and Strong social support
Escalation/DeEscalation of care consider admission/obs:
Admit not indicated
Update Note
Update Note:
Patient ambulated to the bathroom without difficulty. Appears comfortable.
ED Attending Note
-
Portions of this chart may have been created with voice recognition software.� Occasional wrong word or��sound alike� substitutions may have occurred due to the inherent limitations of voice recognition software.
Discharge Plan
Departure
Patient Disposition: Home (Routine Discharge)
Date of Disposition: 07/28/24
Time of Disposition: 22:46
Patient with high blood pressure during this ER visit?: Yes
Condition: Good
Discharge Problem:
Acute thoracic back pain, Fracture of thoracic vertebra
Instructions: Vertebral Compression Fracture ED, BLOOD PRESSURE
Prescriptions:
New
gabapentin [Neurontin] 100 mg capsule
100 mg PO TID Qty: 30 0RF
No Action
aspirin 325 mg Tablet
325 mg PO DAILY Qty: 0 0RF
docusate sodium 100 mg Capsule
100 mg PO BID Qty: 0 0RF
lidocaine 4 % Adhesive Patch,Medicated
1 patch topical DAILY Qty: 0 0RF
polyethylene glycol 3350 [HealthyLax] 17 gram Powder In Packet
17 g PO DAILY Qty: 0 0RF
sennosides [Senna Laxative] 8.6 mg Tablet
17.2 mg PO BID Qty: 0 0RF
oxycodone 5 mg Tablet
5 mg PO Q4HPRN PRN (Reason: mild pain) Qty: 0 0RF
oxycodone 10 mg Tablet
10 mg PO Q4HPRN PRN (Reason: severe pain) Qty: 12 0RF
acetaminophen [Tylenol Extra Strength] 500 mg Tablet
1,000 mg PO Q8H Qty: 0 0RF
multivitamin Tablet
1 tab PO DAILY Qty: 0 0RF
cyanocobalamin (vitamin B-12) [Vitamin B-12] 1,000 mcg Tablet
1,000 mcg PO DAILY Qty: 0 0RF
ascorbic acid (vitamin C) [Vitamin C] 500 mg Tablet
500 mg PO DAILY Qty: 0 0RF
magnesium 250 mg Tablet
250 mg PO DAILY Qty: 0 0RF
vitamin A-vitamin C-vit E-min Tablet
1 tab PO DAILY Qty: 0 0RF
cholecalciferol (vitamin D3) [Vitamin D3] 25 mcg (1,000 unit) Tablet
25 mcg PO DAILY Qty: 0 0RF
Referrals:
Greg Muhammad MD [Family Provider] -
Mark Mcneal MD [Active] - Call in 1-3 days for appt
Interventions
Interventions:
*Risk Screen - Suicide Last Done: 07/28/24 19:40
*General Assessment Last Done: 07/28/24 19:37
*Neglect/Abuse Screening Last Done: 07/28/24 19:37
*Nursing Disposition Last Done: 07/28/24 23:25
ED-Musculoskeletal Assessment Last Done: 07/28/24 22:15
Discharge Date and Time
Discharge Date/Time: 07/28/24 23:25
Print Language: TONGAN
[2024-07-28] MEDS: MORPHINE SULFATE 4 MG IV (21:10)
[2024-07-28] MEDS: ZOFRAN 4 MG IV (21:10)
[2024-07-28 21:50] VITALS: BP 114/49
[2024-07-28 22:00] VITALS: BP 132/82
[2024-07-28] MEDS: LIDOCAINE 4% PATCH 1 PATCH TOPICAL (23:01)
[2024-07-28] MEDS: NEURONTIN 100 MG PO (23:02)
== END 2024-07-28 23:25 | disposition home or self-care (01) ==
LOC: EMR 19:35
PROVIDERS: Emergency Medicine; EMERGENCY PHYSICIAN Emergency Medicine; FAMILY PHYSICIAN Family Medicine
DX: M48.54XA Collapsed vertebra, not elsewhere classified, thoracic region, initial encounter for fracture (principal); G89.29 Other chronic pain; M54.6 Pain in thoracic spine; R07.9 Chest pain, unspecified; R10.10 Upper abdominal pain, unspecified
CPT/HCPCS: 96374; 96375; 99284; 71275; 74177; 80053; 83690; 84484; 85025; 93005; Q9967

== ENCOUNTER → 2024-08-16 13:09 | Outpatient (REF) | payer OTHER, SELFPAY ==
[2024-08-16 16:05] LABS: Calcium 9.6 mg/dl (8.4-10.2); Magnesium 2.3 mg/dl (1.6-2.3); Phosphorus 5.1 mg/dl (2.5-4.5)
[2024-08-16 16:22] LABS: Vitamin D, 25-OH*** 40.9 ng/mL (30-80)
[2024-08-17 14:33] LABS: Intact PTH 54.4 pg/ml (13.6-85.8)
[2024-08-19 01:11] LABS: IgA 283 mg/dl (70-400)
== END ==
LOC: HWLAB 13:09
PROVIDERS: ATTENDING PHYSICIAN Physician Assistant; FAMILY PHYSICIAN Family Medicine
DX: E21.5 Disorder of parathyroid gland, unspecified (principal); E55.9 Vitamin D deficiency, unspecified; K90.0 Celiac disease; M81.0 Age-related osteoporosis without current pathological fracture; R82.994 Hypercalciuria; S22.000A Wedge compression fracture of unspecified thoracic vertebra, initial encounter for closed fracture; Z91.81 History of falling
CPT/HCPCS: 36415; 72040; 72100; 82306; 82784; 83516; 83735; 83970; 84100; 84155; 84165; 86231

== ENCOUNTER → 2024-08-19 11:03 | Outpatient (REF) | payer OTHER, SELFPAY ==
[2024-08-19 15:48] LABS: Urine Calcium 5.7 mg/dl
[2024-08-19 17:17] LABS: 24 Hour Urine Calcium 63.2 mg/day; 24 Hour Urine Total Volume 1110 ml
== END ==
LOC: HWLAB 11:03
PROVIDERS: ATTENDING PHYSICIAN Physician Assistant; FAMILY PHYSICIAN Family Medicine
DX: E21.5 Disorder of parathyroid gland, unspecified (principal); E55.9 Vitamin D deficiency, unspecified; K90.0 Celiac disease; M81.0 Age-related osteoporosis without current pathological fracture; S22.000A Wedge compression fracture of unspecified thoracic vertebra, initial encounter for closed fracture; Z91.81 History of falling
CPT/HCPCS: 81050; 82340

== ENCOUNTER → 2024-09-10 10:27 | Outpatient (REF) | payer OTHER, SELFPAY | LOC: HWRAD 10:27 | PROVIDERS: ATTENDING PHYSICIAN Student in an Organized Health Care Education/Training Program; FAMILY PHYSICIAN Family Medicine | DX: M81.0 Age-related osteoporosis without current pathological fracture (principal); R89.4 Abnormal immunological findings in specimens from other organs, systems and tissues; S22.000A Wedge compression fracture of unspecified thoracic vertebra, initial encounter for closed fracture; Z91.81 History of falling | CPT/HCPCS: 71111 ==

== ENCOUNTER → 2024-10-21 10:46 | Outpatient (REF) | payer OTHER, SELFPAY ==
[2024-10-21 15:55] LABS: % Basophils 0.5 % (0-2); % Eosinophils 2.3 % (0-6); % Immature Granulocytes 0.2 % (0-0.5); % Lymphocytes 20.3 % (20.5-51.1); % Neutrophils 69.7 % (42.2-75.2); Absolute Eosinophils 0.2 10^3/uL (0-0.7); Absolute Lymphocytes 1.7 10^3/uL (1.2-3.4); Absolute Monocytes 0.6 10^3/uL (0.1-0.6); Absolute Neutrophils 5.7 10^3/uL (1.4-6.5); Hematocrit 38.5 % (37.0-47.0); Hemoglobin 12.3 g/dL (12.0-16.0); Mean Corp Hgb Conc. 31.9 g/dL (33.0-37.0); Mean Corpuscular Hgb 28.7 pg (27.0-31.0); Mean Platelet Volume 11.5 fL (7.4-10.4); Nucleated Red Blood Cells % 0 %; Platelet Count 195 10^3/uL (130-400); Red Blood Cell Count 4.28 10^6/uL (4.20-5.40); Red Cell Dist. Width 12.5 % (11.5-14.5); White Blood Cell Count 8.1 10^3/uL (4.8-10.8)
[2024-10-21 16:07] LABS: ALT (SGPT) 15 U/L (0-35); AST (SGOT) 29 U/L (14-36); Albumin 4.3 g/dl (3.5-5.0); Alkaline Phosphatase 108 U/L (38-126); Blood Urea Nitrogen 25 mg/dl (7-17); Calcium 9.2 mg/dl (8.4-10.2); Carbon Dioxide 28 mmol/L (22-30); Chloride 102 mmol/L (98-107); Glucose 86 mg/dl (70-99); Potassium 4.5 mmol/L (3.5-5.1); Sodium 139 mmol/L (135-145); Total Bilirubin 0.7 mg/dl (0.2-1.3); Total Protein 7.2 g/dl (6.3-8.2); eGFR > 60.00
== END ==
LOC: HWLAB 10:46
PROVIDERS: ATTENDING PHYSICIAN Student in an Organized Health Care Education/Training Program; FAMILY PHYSICIAN Family Medicine; REFERRING PHYSICIAN Physical Medicine & Rehabilitation
DX: M81.0 Age-related osteoporosis without current pathological fracture (principal); R89.4 Abnormal immunological findings in specimens from other organs, systems and tissues; Z91.81 History of falling; S22.000A Wedge compression fracture of unspecified thoracic vertebra, initial encounter for closed fracture
CPT/HCPCS: 36415; 80053; 85025

== ENCOUNTER → 2024-11-08 09:13 | Outpatient (REF) | payer OTHER, SELFPAY ==
[2024-11-08 11:35] LABS: % Basophils 0.6 % (0-2); % Eosinophils 1.7 % (0-6); % Immature Granulocytes 0.5 % (0-0.5); % Lymphocytes 21.3 % (20.5-51.1); % Monocytes 7.4 % (1.7-9.3); % Neutrophils 68.5 % (42.2-75.2); Absolute Basophils 0.1 10^3/uL (0-0.2); Absolute Eosinophils 0.2 10^3/uL (0-0.7); Absolute Lymphocytes 1.9 10^3/uL (1.2-3.4); Absolute Monocytes 0.7 10^3/uL (0.1-0.6); Hematocrit 39.1 % (37.0-47.0); Hemoglobin 12.6 g/dL (12.0-16.0); Mean Corp Hgb Conc. 32.2 g/dL (33.0-37.0); Mean Corpuscular Volume 90.1 fL (81.0-99.0); Mean Platelet Volume 11.3 fL (7.4-10.4); Nucleated Red Blood Cells % 0 %; Platelet Count 209 10^3/uL (130-400); Red Blood Cell Count 4.34 10^6/uL (4.20-5.40); Red Cell Dist. Width 12.4 % (11.5-14.5); White Blood Cell Count 8.7 10^3/uL (4.8-10.8)
[2024-11-08 11:41] LABS: ALT (SGPT) 13 U/L (0-35); AST (SGOT) 27 U/L (14-36); Albumin 4.5 g/dl (3.5-5.0); Alkaline Phosphatase 116 U/L (38-126); Blood Urea Nitrogen 21 mg/dl (7-17); Calcium 9.4 mg/dl (8.4-10.2); Carbon Dioxide 27 mmol/L (22-30); Chloride 103 mmol/L (98-107); Glucose 78 mg/dl (70-99); Potassium 4.5 mmol/L (3.5-5.1); Sodium 139 mmol/L (135-145); Total Bilirubin 0.8 mg/dl (0.2-1.3); Total Protein 7.6 g/dl (6.3-8.2); eGFR > 60.00
== END ==
LOC: HWLAB 09:13
PROVIDERS: ATTENDING PHYSICIAN Student in an Organized Health Care Education/Training Program; FAMILY PHYSICIAN Family Medicine
DX: M81.0 Age-related osteoporosis without current pathological fracture (principal); R89.4 Abnormal immunological findings in specimens from other organs, systems and tissues; S22.000A Wedge compression fracture of unspecified thoracic vertebra, initial encounter for closed fracture; Z91.81 History of falling
CPT/HCPCS: 36415; 80053; 85025

== ENCOUNTER → 2025-01-14 10:34 | Outpatient (REF) | payer OTHER, SELFPAY | LOC: HWRAD 10:34 | PROVIDERS: ATTENDING PHYSICIAN Family Medicine; REFERRING PHYSICIAN Physical Medicine & Rehabilitation | DX: M25.571 Pain in right ankle and joints of right foot (principal); M25.572 Pain in left ankle and joints of left foot | CPT/HCPCS: 73610 ==

== ENCOUNTER → 2025-01-20 07:09 | Outpatient (REF) | payer OTHER, SELFPAY | LOC: HWRAD 07:09 | PROVIDERS: ATTENDING PHYSICIAN Family Medicine | DX: M79.605 Pain in left leg (principal) | CPT/HCPCS: 93971 ==

== ENCOUNTER → 2025-02-06 13:05 | Outpatient (REF) | payer OTHER, SELFPAY | LOC: WDC 13:05 | PROVIDERS: ATTENDING PHYSICIAN Family Medicine; FAMILY PHYSICIAN Family Medicine | DX: Z12.31 Encounter for screening mammogram for malignant neoplasm of breast (principal) | CPT/HCPCS: 77063; 77067 ==

== ENCOUNTER → 2025-02-11 12:37 | Outpatient (REF) | payer OTHER, SELFPAY | LOC: HWRAD 12:37 | PROVIDERS: ATTENDING PHYSICIAN Family Medicine | DX: M79.605 Pain in left leg (principal) | CPT/HCPCS: 93971 ==

== ENCOUNTER → 2025-04-28 08:55 | Outpatient (REF) | payer OTHER, SELFPAY ==
[2025-04-28 12:56] LABS: Hematocrit 41.4 % (37.0-47.0); Hemoglobin 12.9 g/dL (12.0-16.0); Mean Corp Hgb Conc. 31.2 g/dL (33.0-37.0); Mean Corpuscular Volume 90.4 fL (81.0-99.0); Nucleated Red Blood Cells % 0 %; Platelet Count 239 10^3/uL (130-400); Red Cell Dist. Width 13.1 % (11.5-14.5)
[2025-04-28 13:32] LABS: Glycohemoglobin (HgbA1c) 5.3 % (4.0-5.6)
[2025-04-28 13:37] LABS: ALT (SGPT) 13 U/L (0-35); AST (SGOT) 24 U/L (14-36); Albumin 4.3 g/dl (3.5-5.0); Alkaline Phosphatase 72 U/L (38-126); Blood Urea Nitrogen 14 mg/dl (7-17); Calcium 9.0 mg/dl (8.4-10.2); Carbon Dioxide 26 mmol/L (22-30); Chloride 105 mmol/L (98-107); Glucose 82 mg/dl (70-99); Magnesium 2.2 mg/dl (1.6-2.3); Potassium 4.2 mmol/L (3.5-5.1); Sodium 138 mmol/L (135-145); Total Protein 7.3 g/dl (6.3-8.2); eGFR > 60.00
[2025-04-28 14:27] LABS: Vitamin B12 > 1000 pg/ml (239-931)
== END ==
LOC: HWLAB 08:55
PROVIDERS: ATTENDING PHYSICIAN Student in an Organized Health Care Education/Training Program; FAMILY PHYSICIAN Family Medicine; REFERRING PHYSICIAN Family Medicine
DX: M81.0 Age-related osteoporosis without current pathological fracture (principal); R89.4 Abnormal immunological findings in specimens from other organs, systems and tissues; S22.000A Wedge compression fracture of unspecified thoracic vertebra, initial encounter for closed fracture; Z91.81 History of falling; R79.9 Abnormal finding of blood chemistry, unspecified; Z01.89 Encounter for other specified special examinations; Z79.899 Other long term (current) drug therapy; Z13.1 Encounter for screening for diabetes mellitus
CPT/HCPCS: 36415; 80053; 82607; 83036; 83735; 84443; 85025

== ENCOUNTER → 2025-05-21 08:25 | Outpatient (REF) | payer OTHER, SELFPAY | LOC: HWRAD 08:25 | PROVIDERS: ATTENDING PHYSICIAN Family Medicine; REFERRING PHYSICIAN Specialist | DX: M25.561 Pain in right knee (principal) | CPT/HCPCS: 73564 ==